=== PATIENT | female | born 1950 | race Caucasian/White ===

== ENCOUNTER 2022-06-21 17:37 | Outpatient (CLI) | payer MEDICARE | END 2022-06-21 17:38 | disposition home or self-care (01) | LOC: LABBT 17:37 | PROVIDERS: ATTEND Ophthalmology Retina Specialist | DX: Z20.822 Contact with and (suspected) exposure to COVID-19 (principal) | CPT/HCPCS: 87811 ==

== ENCOUNTER 2022-06-24 06:22 | Day surgery (SDC) | payer MEDICARE ==
[2022-06-23 11:16] VITALS: BMI 22.6
[~2022-06-24 06:22] MED LIST: EPINEPHrine 0.3 MG in Ophthalmic Irrigation Solution 500 ML IRR SCH
[2022-06-24] MEDS ORDERED: Phenylephrine 2.5% Ophth Soln 5 ML BOT ONE (06:48)
[2022-06-24] MEDS ORDERED: Cyclopentolate 1% Opth Drop 2 ML BOT ONE (06:48)
[2022-06-24] MEDS ORDERED: Lidocaine 1% PF 5 ML VIAL ONE (07:53)
[2022-06-24] MEDS ORDERED: CEFAZOLIN 1 GM VIAL ONE (07:53)
[2022-06-24] MEDS ORDERED: Maxitrol 0.1% Opth Oint 3.5 GM TUBE ONE (07:53)
[2022-06-24] MEDS ORDERED: Lidocaine 4% PF 5 ML AMP ONE (07:53)
[2022-06-24] MEDS ORDERED: PROPOFOL 200 MG/20 ML VIAL ONE (07:53)
[2022-06-24] MEDS ORDERED: Triamcinolone 40 MG/ML VIAL ONE (07:53)
[2022-06-24] MEDS ORDERED: Bupivacaine 0.75% 10 ML VIAL ONE (07:53)
== END 2022-06-24 09:06 | disposition home or self-care (01) ==
LOC: SDC 06:22
PROVIDERS: ATTEND Ophthalmology Retina Specialist
PROC: 08B43ZZ Excision of Right Vitreous, Percutaneous Approach (ICD-10-PCS; principal; 2022-06-24)
PROC: 08NE3ZZ Release Right Retina, Percutaneous Approach (ICD-10-PCS; 2022-06-24)
DX: H43.311 Vitreous membranes and strands, right eye (principal); Z20.822 Contact with and (suspected) exposure to COVID-19
CPT/HCPCS: J0171; J0690; J2704; J3301; J3490

== ENCOUNTER 2024-05-04 12:23 | Outpatient (CLI) | payer MEDICARE ==
[~2024-05-04 12:23] MED LIST changes: +BUPIVACAINE I-ARTICULR SCH; -EPINEPHrine 0.3 MG in Ophthalmic Irrigation Solution 500 ML IRR SCH; +LIDOCAINE I-ARTICULR SCH; +TRIAMCINOLONE ACETONIDE I-ARTICULR SCH; +[UNRECOGNIZED DRUG - OTHER] I-ARTICULR SCH
[2024-05-04] MEDS ORDERED: Iopamidol 30 ML ONE (13:16)
== END 2024-05-04 12:24 | disposition home or self-care (01) ==
LOC: RAD 12:23
PROVIDERS: ATTEND Orthopaedic Surgery
DX: M16.11 Unilateral primary osteoarthritis, right hip (principal); M25.512 Pain in left shoulder
CPT/HCPCS: 20610; 77002; J0665; J3301; Q9967